=== PATIENT | female | born 1960 | race American Indian/Alaskan Native ===

== ENCOUNTER 2020-06-17 13:41 | Outpatient (CLI) | payer OTHER | END 2020-06-17 13:42 | disposition home or self-care (01) | LOC: SPVWC 13:41 | PROVIDERS: ATTEND Urology | DX: Z12.31 Encounter for screening mammogram for malignant neoplasm of breast (principal) | CPT/HCPCS: 77067 ==

== ENCOUNTER 2020-06-21 14:08 | Outpatient (CLI) | payer OTHER ==
--- NOTE | 2020-06-21 17:17 | XRay Report ---
BILATERAL KNEES 6 VIEWS 1505 INDICATION: KNEE PAIN COMPARISON: None available. FINDINGS: No fractures or dislocations are seen. No obvious joint effusions are noted. Both knees placido w mild tricompartment degenerative changes, more prominent on the left and in both knees more noticea ble in the patellofemoral and medial compartments than the lateral compartment. Signer Name: Thomas Alex MD Signed: 06/21/2020 5:13 PM Workstation Name: [id number]
== END 2020-06-21 14:09 | disposition home or self-care (01) ==
LOC: SPVIMAG 14:08
PROVIDERS: ATTEND Urology
DX: M17.0 Bilateral primary osteoarthritis of knee (principal)